=== PATIENT | female | born 1980 | race Caucasian/White ===

== ENCOUNTER 2018-10-28 17:07 | Emergency (ER) | payer OTHER ==
[~2018-10-28] VITALS: Ht 160 cm; Wt 122.5 kg
[~2018-10-28 17:07] MED LIST: ATIVAN0.5 M1 PO; CELEXA20 MG PO; METFORMIN HCL500 MG PO
[2018-10-28] MEDS ORDERED: AMOXICILLIN 50500 MG PO (17:55)
[2018-10-28 18:04] VITALS: BP 148/88
== END 2018-10-28 18:05 | disposition home or self-care (01) ==
LOC: M.ERS 17:07
DX: J02.9 Acute pharyngitis, unspecified (principal); E11.9 Type 2 diabetes mellitus without complications; J45.909 Unspecified asthma, uncomplicated; F17.210 Nicotine dependence, cigarettes, uncomplicated